=== PATIENT | female | born 1990 | race African-American/Black ===

== ENCOUNTER 2018-01-29 16:56 | Emergency (ER) | payer MEDICAID ==
[~2018-01-29] VITALS: Ht 170.2 cm; Wt 96.2 kg
[~2018-01-29 16:56] MED LIST: PREN-129 OR
[2018-01-29 20:19] VITALS: BP 120/80
[2018-01-29] MEDS ORDERED: LIDOCAINE 1% (LOCAL ANESTH.) PF 5ml SDV IN ONE (20:45)
[2018-01-29] MEDS ORDERED: cefTRIAXone SOD 1,000 MG VL IM ONE (20:45)
[2018-01-29] MEDS ORDERED: LIDOCAINE 1% HCL (LOCAL ANESTH.) INJ 20ML MDV ONE (20:52)
[2018-01-29] MEDS ORDERED: BACITRACIN-POLYMYXIN B TOPICAL OINT UD TOP ONE (21:27)
[2018-01-29] MEDS ORDERED: BACITRACIN TOP OINT 1 UD PKG TOP ONE (21:30)
== END 2018-01-29 21:56 | disposition home or self-care (01) ==
LOC: ER 16:56
DX: N61.0 Mastitis without abscess (principal); F17.210 Nicotine dependence, cigarettes, uncomplicated; Z79.899 Other long term (current) drug therapy
CPT/HCPCS: 10060; 96372; 99283; J0696; J2001